=== PATIENT | female | born 1985 | race Caucasian/White ===

== ENCOUNTER 2016-11-28 08:25 | Day surgery (SDC) | payer OTHER ==
[~2016-11-28 08:25] MED LIST: LACTATED RINGERS 1,000 ML IV SCH
[2016-11-28] MEDS ORDERED: IV START KIT ONE (08:33)
[2016-11-28] MEDS ORDERED: LACTATED RINGERS 1,000 ML ONE (08:33)
[2016-11-28] MEDS ORDERED: PROPOFOL 0 ML IV ONE (09:06)
--- NOTE | 2016-11-30 13:50 | SURGPATH ---
[facility] [address] [place] [id number] Patient Name: LUIS ANTONIO RAMIREZ MR#: [id number] : 1985 Gender: F Specimen #: [id number] Collected: 11/28/2016 Received: 11/29/2016 Reported: 11/30/2016 Submitting Phys: KIMANI MCLEOD Copy To Phys: YADIRA COLON [facility] Clinical History / Pre-Operative Diagnosis: CHANGE IN BOWEL PATTERN; DIARRHEA; RECTAL BLEEDING Specimen Source / Surgical Procedure Performed: SIGMOID BIOPSY AT 30 CM Interpretation: COLON, SIGMOID AT 30 CM, MUCOSAL BIOPSY: - FOCAL SUPERFICIAL MUCOSAL HYPERPLASIA WITH NO ADDITIONAL DIAGNOSTIC ABNORMALITY Electronically Signed Out Viji Wheeler M.D. Gross Description: The specimen is received in a formalin filled container labeled with the patient's name and "sigmoid biopsy at 30 cm". Two beach-muñoz biopsies are 0.3 and 0.6 cm. Totally embedded in one cassette. Juan Ricardo PAdrienneA. Microscopic Description: Benign colonic mucosa shows normal cytoarchitecture without significant inflammation or diagnostic abnormality except for a single, small focus of superficial hyperplasia with a few serrated, mucous distended glands. 1: [id number] K63.89
== END 2016-11-28 10:30 | disposition home or self-care (01) ==
LOC: SDC 08:25
PROVIDERS: ATTEND Internal Medicine Gastroenterology
PROC: 0DBN8ZX Excision of Sigmoid Colon, Via Natural or Artificial Opening Endoscopic, Diagnostic (ICD-10-PCS; principal; 2016-11-28)
DX: O26.891 Other specified pregnancy related conditions, first trimester (principal); R10.9 Unspecified abdominal pain; R19.7 Diarrhea, unspecified; K92.1 Melena; Z3A.01 Less than 8 weeks gestation of pregnancy